=== PATIENT | female | born 1970 | race Two or more races ===

== ENCOUNTER 2017-05-20 05:48 | Emergency (ER) | payer OTHER ==
--- NOTE | 2017-05-20 05:58 | EDPHY ---
H & P HPI/ROS: HPI CHIEF COMPLAINT: Shortness of breath HISTORY OF PRESENT ILLNESS: This patient very pleasant 47-year-old female, she presents emergency room for shortness of breath times 48 hours. 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 No history of PE or DVT. Denies cardiac history personally. Does have family history of cardiac history. 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 She tells me also she has felt dyspnea on exertion especially when she climbs stairs in the hospital she gets winded easily. This is not normal for her. She denies any significant chest pain or pleuritic pain. No hemoptysis. Denies wheezing. Denies productive cough, fever recent illness. Her main complaint is dyspnea on exertion, and the feeling of dyspnea and that she cannot take a deep breath in. She tells me when she got off work yesterday she feels like she became very anxious at home. States she took her albuterol inhaler, Singulair, and was able to go to sleep. Unclear this made a great improvement or not. Again tonight she worked all night and felt short of breath as the feeling she cannot take a deep full breath in. Of remote she does tell me that she injured her left leg and had a hamstring pull of her left leg, as well as a recent softball injury to her left calf. She thinks her left leg maybe slightly swollen more than right leg. Past Medical History: Asthma Past Surgical History: Left saphenous vein harvest due to varicose veins, right ACL, abdominal plasty Social History: Denies use of drugs alcohol tobacco products, works as an RN here [employer] Family History: Noncontributory ROS REVIEW OF SYSTEMS: A comprehensive 10 point review of systems is otherwise negative aside from elements mentioned in the history of present illness. Exam Constitutional appears well nontoxic triage nursing summary reviewed, vital signs reviewed, awake/alert. (VSS, normal heart rate, no hypoxia) Eyes normal conjunctivae and sclera, EOMI, PERRLA. HENT normal inspection, atraumatic, moist mucus membranes, no epistaxis, neck supple/ no meningismus, no raccoon eyes. Respiratory clear to auscultation bilaterally, normal breath sounds, no respiratory distress, no wheezing. Cardiovascular rate normal, regular rhythm, no murmur, no edema, distal pulses normal. Gastrointestinal soft, non-tender, no rebound, no guarding, normal bowel sounds, no distension, no pulsatile mass. Genitourinary no CVA tenderness. Musculoskeletal no midline vertebral tenderness, full range of motion, no calf swelling, no tenderness of extremities, no meningismus, good pulses, neurovascularly intact. Skin pink, warm, & dry, no rash, skin atraumatic. Neurologic awake, alert and oriented x 3, AAOx3, moves all 4 extremities equally, motor intact, sensory intact, CN II-XII intact, normal cerebellar, normal vision, normal speech. Psychiatric normal mood/affect. Heme/Lymph/Immune no lymphadenopathy. Differential Diagnosis: Includes but is not limited to in a particular order, pulmonary embolism, DVT, asthma, reactive airway disease, pneumothorax, pneumonia, anxiety Medical Decision Making: Plan for this patient full manager monitoring, IV establishment, albuterol breathing treatment, check troponin, EKG, D-dimer chest x-ray two view. If D-dimer is positive may need to proceed with CT angiogram. Re-evaluation: EKG interpretation by me on record in [employer] system. Impression time of EKG 6:15 a.m., this is sinus rhythm rate of 57 there is no acute ischemic changes seen on this EKG specifically no ST elevation, ST depression or significant T-wave abnormalities. And this EKG is unchanged morphology when compared to old EKG dated 10/08/2010. ED x-ray chest two view: Negative for acute cardiopulmonary disease. Image interpreted by myself. [id number]: I did re-evaluate this patient she is resting comfortably. She tells me she feels slightly better after albuterol neb. Somewhat shaky after. No chest pain no ongoing significant shortness of breath. I do review her EKG is unremarkable from previous EKGs. D-dimer is negative. I went over her blood work with her. Troponin and BNP are pending at this time which should be normal. She would like to be discharged from the emergency room. I explained if her troponin BNP are normal. I will allow her to go home. Troponin and BNP are normal. Patient comfortable discharge planning. Source: Patient - Personal History Tetanus Vaccine Date: 2008 - Medical/Surgical History Hx Asthma: Yes Hx Chronic Respiratory Disease: No Hx Diabetes: No Hx Cardiac Disease: No Hx Renal Disease: No Hx Cirrhosis: No Hx Alcoholism: No Hx HIV/AIDS: No Hx Splenectomy or Spleen Trauma: No Other PMH: L saphinoius vein stripped 2005 R complete ACL repair w/ hamstring tendon recon. - Social History Smoking Status: Never smoked Constitutional: Initial Vital Signs Temperature (C) 36.6 C 05/20/17 05:50 Heart Rate 53 L 05/20/17 05:50 Respiratory Rate 16 05/20/17 05:50 Blood Pressure 108/68 05/20/17 05:50 O2 Sat (%) 97 05/20/17 05:50 O2 Delivery Mode Room Air Allergies/Adverse Reactions: No Known Allergies Allergy (Verified 05/20/17 06:06) Home Medications: Medication Instructions Recorded Albuterol [Proventil Inhaler HFA 2 puffs IH Q4 PRN 09/27/14 (*)] Cholecalciferol Vit D3 [Vitamin D3 2,000 units PO BID 09/27/14 (*)] Multivitamins [Multivitamin (*)] 1 tab PO DAILY 09/27/14 Mometasone 220Mcg Inhaler [Asmanex 1 puffs IH DAILY 10/11/14 Inh (*)] Hydrocodone/APAP 5/325 [[place] 1 - 2 tab PO Q4 PRN #0 tab 10/12/14 5/325 (*)] Ibuprofen [Motrin (*)] 600 mg PO Q6 #0 tab 10/12/14 Medical Decision Making - Data Points Laboratory Results: Laboratory Results 05/20/17 06:00 05/20/17 06:00 05/20/17 05/20/17 05/20/17 06:00 06:00 06:00 WBC 6.90 10^3/uL 10^3/uL (3.80-9.50) RBC 3.93 10^6/uL L 10^6/uL (4.18-5.33) Hgb 13.1 g/dL g/dL (12.6-16.3) Hct 38.5 % % (38.0-47.0) MCV 98.0 fL fL (81.5-99.8) MCH 33.3 pg pg (27.9-34.1) MCHC 34.0 g/dL g/dL (32.4-36.7) RDW 12.1 % % (11.5-15.2) Plt Count 199 10^3/uL 10^3/uL (150-400) MPV 9.8 fL fL (8.7-11.7) Neut % (Auto) 54.5 % % (39.3-74.2) Lymph % (Auto) 33.9 % % (15.0-45.0) [place] % (Auto) 7.7 % % (4.5-13.0) Eos % (Auto) 2.9 % % (0.6-7.6) Baso % (Auto) 0.6 % % (0.3-1.7) Nucleat RBC Rel Count 0.0 % % (0.0-0.2) Absolute Neuts (auto) 3.76 10^3/uL 10^3/uL (1.70-6.50) Absolute Lymphs (auto) 2.34 10^3/uL 10^3/uL (1.00-3.00) Absolute Monos (auto) 0.53 10^3/uL 10^3/uL (0.30-0.80) Absolute Eos (auto) 0.20 10^3/uL 10^3/uL (0.03-0.40) Absolute Basos (auto) 0.04 10^3/uL 10^3/uL (0.02-0.10) Absolute Nucleated RBC 0.00 10^3/uL 10^3/uL (0-0.01) Immature Gran % 0.4 % % (0.0-1.1) Immature Gran # 0.03 10^3/uL 10^3/uL (0.00-0.10) PT 12.9 SEC SEC (12.0-15.0) INR 0.98 (0.83-1.16) APTT 26.5 SEC SEC (23.0-38.0) D-Dimer < 0.27 ug/mLFEU ug/mLFEU (0.00-0.50) Sodium 139 mEq/L mEq/L (134-144) Potassium 4.5 mEq/L mEq/L (3.5-5.2) Chloride 108 mEq/L mEq/L (97-110) Carbon Dioxide 23 mEq/l mEq/l (22-31) Anion Gap 8 mEq/L mEq/L (8-16) BUN 15 mg/dL mg/dL (7-23) Creatinine 0.7 mg/dL mg/dL (0.6-1.0) Estimated GFR > 60 Glucose 94 mg/dL mg/dL (70-100) Calcium 9.4 mg/dL mg/dL (8.5-10.4) Magnesium 2.1 mg/dL mg/dL (1.6-2.3) Total Bilirubin 0.6 mg/dL mg/dL (0.1-1.4) Conjugated Bilirubin 0.5 mg/dL mg/dL (0.0-0.5) Unconjugated Bilirubin 0.1 mg/dL mg/dL (0.0-1.1) AST 20 IU/L IU/L (14-46) ALT 29 IU/L IU/L (9-52) Alkaline Phosphatase 63 IU/L IU/L (38-126) Troponin I < 0.012 ng/mL ng/mL (0-0.034) NT-Pro-B Natriuret Pep 36 pg/mL pg/mL (0-125) Total Protein 7.4 g/dL g/dL (6.3-8.2) Albumin 4.4 g/dL g/dL (3.5-5.0) Medications Given: Discontinued Medications Albuterol (Proventil Neb) 3 ml IH EDNOW ONE Stop: 05/20/17 06:07 Last Admin: 05/20/17 06:18 Dose: 3 ml Sodium Chloride (Ns) 500 mls @ 1,000 mls/hr IV ONCE ONE PRN Reason: Protocol Stop: 05/20/17 06:28 Last Admin: 05/20/17 06:19 Dose: 500 mls Departure - Departure Disposition: Home, Routine, Self-Care Clinical Impression: Dyspnea Qualifiers: Dyspnea type: dyspnea on exertion Qualified Code(s): R06.09 - Other forms of dyspnea Condition: Good Instructions: Dyspnea (ED) Additional Instructions: 1. Return emergency room if you have any worsening symptoms includes chest pain , shortness of breath you do not feel well. Referrals: Eric Umanzor MD [Primary Care Provider] - As per Instructions
[2017-05-20] MEDS ORDERED: NS 500 ML IV ONE (05:59)
[2017-05-20 06:06] VITALS: RESP 16; TEMP 97.9
[2017-05-20] MEDS ORDERED: ALBUTEROL 3 ML DEYVIAL IH ONE (06:06)
[2017-05-20 06:13] LABS: % IMMATURE GRANULYOCYTES 0.4 % (0.0-1.1); ABSOLUTE IMMATURE GRANULOCYTES 0.03 10^3/uL (0.00-0.10); ADD DIFF? NO; ADD MORPH? NO; ADD SCAN? NO; ATYPICAL LYMPHOCYTE FLAG 0 (0-99); FRAGMENT RBC FLAG 0 (0-99); HEMATOCRIT 38.5 % (38.0-47.0); HEMOGLOBIN 13.1 g/dL (12.6-16.3); LEFT SHIFT FLG 0 (0-99); LIPEMIA HEMOLYSIS FLAG 90 (0-99); MEAN CELL HEMOGLOBIN 33.3 pg (27.9-34.1); MEAN PLATELET VOLUME 9.8 fL (8.7-11.7); PLATELET CLUMPS FLAG 0 (0-99); PLATELET COUNT 199 10^3/uL (150-400); RED BLOOD CELL COUNT 3.93 10^6/uL (4.18-5.33); RED CELL DISTRIBUTION WIDTH 12.1 % (11.5-15.2)
--- NOTE | 2017-05-20 06:17 | CPEKG ---
Heart Rate: 57 RR Interval: 1053 P-R Interval: 188 QRSD Interval: 104 QT Interval: 428 QTC Interval: 417 P [place]: 53 QRS [place]: 53 T Wave [place]: 33 EKG Severity - NORMAL ECG - EKG Impression: SINUS RHYTHM Electronically Signed By: Ignacio Aleman 22-May-2017 09:43:26
[2017-05-20 06:22] LABS: INR 0.98 (0.83-1.16); PROTIME(PATIENT) 12.9 SEC (12.0-15.0)
[2017-05-20 06:23] LABS: APTT 26.5 SEC (23.0-38.0)
[2017-05-20 06:30] LABS: ALANINE AMINOTRANSFERASE 29 IU/L (9-52); ALBUMIN 4.4 g/dL (3.5-5.0); ALKALINE PHOSPHATASE 63 IU/L (38-126); ANION GAP 8 mEq/L (8-16); ASPARTATE AMINOTRANSFERASE 20 IU/L (14-46); BILIRUBIN,TOTAL 0.6 mg/dL (0.1-1.4); BILIRUBIN-CONJUGATED 0.5 mg/dL (0.0-0.5); BILIRUBIN-UNCONJUGATED 0.1 mg/dL (0.0-1.1); CALCIUM 9.4 mg/dL (8.5-10.4); CARBON DIOXIDE 23 mEq/l (22-31); CHLORIDE 108 mEq/L (97-110); CREATININE 0.7 mg/dL (0.6-1.0); GLOMERULAR FILTRATION RATE > 60; GLUCOSE 94 mg/dL (70-100); MAGNESIUM 2.1 mg/dL (1.6-2.3); POTASSIUM 4.5 mEq/L (3.5-5.2); SODIUM 139 mEq/L (134-144); TOTAL PROTEIN 7.4 g/dL (6.3-8.2)
[2017-05-20 06:41] LABS: TROPONIN I < 0.012 ng/mL (0-0.034)
[2017-05-20 06:52] VITALS: BP 108/72; PULSE 58; O2SAT 96
== END 2017-05-20 06:52 | disposition home or self-care (01) ==
LOC: EEVIPCON 05:48
DX: R06.09 Other forms of dyspnea (principal); J45.909 Unspecified asthma, uncomplicated

== ENCOUNTER → 2018-10-06 | Outpatient (CLI) | payer OTHER | LOC: FIMAGING 00:57 | PROVIDERS: ATTEND Physical Medicine & Rehabilitation Neuromuscular Medicine | DX: M50.321 Other cervical disc degeneration at C4-C5 level (principal); M50.322 Other cervical disc degeneration at C5-C6 level ==